=== PATIENT | female | born 1940 | race Caucasian/White ===

== ENCOUNTER 2017-08-11 21:50 | Inpatient (IN) | payer OTHER ==
[~2017-08-11] VITALS: Ht 152.4 cm; Wt 98.5 kg
[~2017-08-11 21:50] MED LIST: ASPIR 8181 M1 PO; AUGMENTIN875 MG PO; BENADRYL25 MG PO; CALCIUM 500 +1 EACH PO; DOXYCYCLINE HY100 M3 PO; FLEXERIL5 MG PO; FLONASE16 G1 BOTH NARES; GLUCOPHAGE1000 MG PO; GLUCOTROL XL10 MG PO; GLUCOTROL10 MG PO; KEFLEX500 MG PO; LANTUS 3 M100 UNITS1 SC; LIPITOR10 MG PO; LOPRESSOR25 MG PO; MICARDIS40 MG PO; MOBIC15 MG PO; NEXIUM40 MG PO; NORVASC5 MG PO; NOVOLOG PE100 UNITS/ SC; PAMELOR10 MG PO; PAXIL10 MG PO; PREDNISONE20 MG PO; PROTONIX40 MG PO; SYNTHROID75 MCG PO; SYNTHROID88 MCG PO; TESSALON PERLE100 MG PO; ULTRAM50 MG PO; VESICARE5 MG PO; VITAMIN C500 M1 PO
[2017-08-11 22:38] LABS: HEMATOCRIT 18.8 % (36.0-46.0); HEMOGLOBIN 6.3 G/DL (11.9-15.5); MCH 30.1 PG (29.0-34.0); MCHC 33.5 G/DL (30.0-36.0); NRBC (%) 0.5 /100 WBC (0-0); PLATELET COUNT 97 K/uL (156-360); RBC DIS.WIDTH-CV 17.5 % (11.8-14.6); RBC DIS.WIDTH-SD 50.4 % (39-53); RED BLOOD COUNT 2.09 M/uL (3.80-5.20); WHITE BLOOD COUNT 7.9 K/uL (4.1-10.2)
[2017-08-11 22:47] LABS: CHLORIDE 103 mEq/L (99-109); POTASSIUM 4.5 mEq/L (3.7-5.4); SODIUM 134 mEq/L (136-147)
[2017-08-11 22:49] LABS: GLUCOSE 272 mg/dL (70-99)
[2017-08-11 22:53] LABS: CREATININE 1.1 mg/dL (0.6-1.3); GFR ESTIMATE (CALCULATED) 51 mL/min/
[2017-08-11 22:54] LABS: UREA NITROGEN (BUN) 15 mg/dL (9-23)
[2017-08-11 22:57] LABS: TROP-I INTERPRETATION NEGATIVE; TROPONIN-I 0.12 ng/mL (0.0-0.30)
[2017-08-11] MEDS ORDERED: NOVOLOG PE100 UNITS/ SC (23:23)
[2017-08-12] VITALS (13 sets, daily range): BP systolic 86–136; BP diastolic 42–72
[2017-08-12 09:21] LABS: HEMATOCRIT 27.8 % (36.0-46.0); HEMOGLOBIN 9.3 G/DL (11.9-15.5); MCHC 33.5 G/DL (30.0-36.0); MCV 86.6 FL (83-99); NRBC (%) 0.7 /100 WBC (0-0); PLATELET COUNT 105 K/uL (156-360); RBC DIS.WIDTH-CV 18.1 % (11.8-14.6); RBC DIS.WIDTH-SD 50.1 % (39-53); RED BLOOD COUNT 3.21 M/uL (3.80-5.20); WHITE BLOOD COUNT 14.5 K/uL (4.1-10.2)
[2017-08-12 09:30] LABS: CHLORIDE 105 mEq/L (99-109); POTASSIUM 4.5 mEq/L (3.7-5.4); SODIUM 135 mEq/L (136-147)
[2017-08-12 09:32] LABS: GLUCOSE 267 mg/dL (70-99)
[2017-08-12 09:36] LABS: CREATININE 1.1 mg/dL (0.6-1.3); GFR ESTIMATE (CALCULATED) 51 mL/min/; UREA NITROGEN (BUN) 16 mg/dL (9-23)
[2017-08-12 18:41] LABS: TROP-I INTERPRETATION NEGATIVE; TROPONIN-I 0.13 ng/mL (0.0-0.30)
[2017-08-12 22:17] LABS: HEMATOCRIT 23.8 % (36.0-46.0); HEMOGLOBIN 8.2 G/DL (11.9-15.5)
[2017-08-13] VITALS (14 sets, daily range): BP systolic 69–140; BP diastolic 44–64
[2017-08-13 01:17] LABS: TROP-I INTERPRETATION POSITIVE
[2017-08-13 01:19] LABS: TROPONIN-I 1.17 ng/mL (0.0-0.30)
[2017-08-13 05:59] LABS: HEMATOCRIT 25.2 % (36.0-46.0); HEMOGLOBIN 8.5 G/DL (11.9-15.5); MCHC 33.7 G/DL (30.0-36.0); NRBC (%) 0.8 /100 WBC (0-0); PLATELET COUNT 99 K/uL (156-360); RBC DIS.WIDTH-CV 17.9 % (11.8-14.6); RBC DIS.WIDTH-SD 50.3 % (39-53); RED BLOOD COUNT 2.93 M/uL (3.80-5.20); WHITE BLOOD COUNT 8.4 K/uL (4.1-10.2)
[2017-08-13 06:21] LABS: CHLORIDE 101 MEQ/L (99-109); GFR ESTIMATE (CALCULATED) 57 mL/min/; GLUCOSE 306 mg/dL (70-99); POTASSIUM 4.3 MEQ/L (3.7-5.4); SODIUM 132 MEQ/L (136-147); UREA NITROGEN (BUN) 16 mg/dL (9-23)
[2017-08-13 13:05] LABS: BASE EXCESS -0.8 mEq/L (-3 to +3); BICARBONATE 22.1 mEq/L (22-26); COMMENTS - BLOOD GASES A+C+; DEVICE NC; METHEMOGLOBIN 0.8 % (0-1.5); O2 FLOW 4 L/MIN; PCO2 29 mm Hg (35-45); PO2 71 mm Hg (80-100); SITE RR; pH 7.49 (7.35-7.45)
[2017-08-13 13:39] LABS: HEMATOCRIT 25.5 % (36.0-46.0); HEMOGLOBIN 8.6 G/DL (11.9-15.5); MCH 29.2 PG (29.0-34.0); MCHC 33.7 G/DL (30.0-36.0); MCV 86.4 FL (83-99); NRBC (%) 0.8 /100 WBC (0-0); PLATELET COUNT 109 K/uL (156-360); RBC DIS.WIDTH-CV 18.1 % (11.8-14.6); RBC DIS.WIDTH-SD 51.3 % (39-53); RED BLOOD COUNT 2.95 M/uL (3.80-5.20); WHITE BLOOD COUNT 12.7 K/uL (4.1-10.2)
[2017-08-13 14:39] LABS: TROP-I INTERPRETATION POSITIVE; TROPONIN-I 0.71 ng/mL (0.0-0.30)
[2017-08-13 18:56] LABS: TROP-I INTERPRETATION POSITIVE; TROPONIN-I 0.67 ng/mL (0.0-0.30)
[2017-08-13 21:55] LABS: HEMATOCRIT 28.4 % (36.0-46.0); HEMOGLOBIN 9.7 G/DL (11.9-15.5); MCV 87.4 FL (83-99)
[2017-08-14] VITALS (25 sets, daily range): BP systolic 87–148; BP diastolic 41–74
[2017-08-14 06:38] LABS: ALBUMIN 2.6 G/DL (3.2-4.8); ALKALINE PHOSPHATASE 45 IU/L (3-129); ALT (GPT) 26 IU/L (3-49); AST (GOT) 40 IU/L (2-34); CHLORIDE 108 MEQ/L (99-109); GLUCOSE 242 mg/dL (70-99); POTASSIUM 4.4 MEQ/L (3.7-5.4); SODIUM 137 MEQ/L (136-147); TOTAL BILIRUBIN 0.9 MG/DL (0.0-1.0)
[2017-08-14 06:40] LABS: CREATININE 1.7 MG/DL (0.6-1.3); GFR ESTIMATE (CALCULATED) 31 mL/min/; UREA NITROGEN (BUN) 27 mg/dL (9-23)
[2017-08-14 14:23] LABS: HEMATOCRIT 24.8 % (36.0-46.0); HEMOGLOBIN 8.2 G/DL (11.9-15.5); MCHC 33.1 G/DL (30.0-36.0); MCV 87.6 FL (83-99); NRBC (%) 0.8 /100 WBC (0-0); PLATELET COUNT 94 K/uL (156-360); RBC DIS.WIDTH-SD 53.5 % (39-53); RED BLOOD COUNT 2.83 M/uL (3.80-5.20); WHITE BLOOD COUNT 9.4 K/uL (4.1-10.2)
[2017-08-14 15:28] LABS: ABS NEUTROPHIL COUNT 0.9; ANISOCYTOSIS 1+; ATYPICAL LYMPHOCYTE 10.7 %; BAND NEUTROPHILS 2.7 % (0-8.0); BURR CELLS 1+; EOSINOPHIL ABS CT 0.1; EOSINOPHILS 0.9 % (0-5.0); GIANT PLATELETS 1+; HYPOCHROMASIA 1+; LYMPHOCYTES 41.1 % (15.0-45.0); MICROCYTOSIS 1+; MONOCYTES 36.6 % (0-9.0); NUCLEATED RBC'S 3.6; OVALOCYTES 1+; PLAT.SUFFICIENCY DECREASED; POIKILOCYTOSIS 1+; SEG.NEUTROPHILS 7.1 % (46.0-76.0); SPHEROCYTES 1+
[2017-08-15] VITALS (18 sets, daily range): BP systolic 108–178; BP diastolic 49–88
[2017-08-15 04:56] LABS: MAGNESIUM 1.2 mg/dL (1.3-2.7)
[2017-08-15 04:59] LABS: HEMATOCRIT 24.5 % (36.0-46.0); HEMOGLOBIN 8.3 G/DL (11.9-15.5); MCH 29.3 PG (29.0-34.0); MCHC 33.9 G/DL (30.0-36.0); MCV 86.6 FL (83-99); NRBC (%) 0.7 /100 WBC (0-0); PLATELET COUNT 89 K/uL (156-360); RBC DIS.WIDTH-CV 17.7 % (11.8-14.6); RBC DIS.WIDTH-SD 52.3 % (39-53); RED BLOOD COUNT 2.83 M/uL (3.80-5.20); WHITE BLOOD COUNT 7.3 K/uL (4.1-10.2)
[2017-08-15 05:00] LABS: PHOSPHORUS 2.3 mg/dL (2.5-4.9)
[2017-08-15 05:40] LABS: ABS NEUTROPHIL COUNT 0.4; ACANTHOCYTES 1+; ANISOCYTOSIS 1+; ATYPICAL LYMPHOCYTE 3.5 %; EOSINOPHIL ABS CT 0.1; EOSINOPHILS 0.9 % (0-5.0); LYMPHOCYTES 38.6 % (15.0-45.0); MICROCYTOSIS 1+; OVALOCYTES 1+; PLAT.SUFFICIENCY DECREASED; SEG.NEUTROPHILS 6.1 % (46.0-76.0); TEAR DROP CELLS 1+
[2017-08-15 05:41] LABS: MONOCYTES 50.9 % (0-9.0)
[2017-08-15 10:28] LABS: CHLORIDE 104 MEQ/L (99-109); GLUCOSE 286 mg/dL (70-99); SODIUM 134 MEQ/L (136-147); UREA NITROGEN (BUN) 22 mg/dL (9-23)
[2017-08-15 10:31] LABS: CREATININE 1.2 MG/DL (0.6-1.3); GFR ESTIMATE (CALCULATED) 46 mL/min/
[2017-08-15 12:09] LABS: C DIFF TOXIN NEGATIVE (NEGATIVE)
[2017-08-16 00:26] VITALS: BP 108/53
[2017-08-16 04:59] VITALS: BP 103/59
[2017-08-16 06:38] LABS: CHLORIDE 106 MEQ/L (99-109); GFR ESTIMATE (CALCULATED) 57 mL/min/; GLUCOSE 277 mg/dL (70-99); MAGNESIUM 1.9 mg/dl (1.3-2.7); SODIUM 136 MEQ/L (136-147); UREA NITROGEN (BUN) 21 mg/dL (9-23)
[2017-08-16 06:40] LABS: POTASSIUM 5.9 MEQ/L (3.7-5.4)
[2017-08-16 07:04] LABS: HEMATOCRIT 25.8 % (36.0-46.0); HEMOGLOBIN 8.5 G/DL (11.9-15.5); MCHC 32.9 G/DL (30.0-36.0); MCV 88.1 FL (83-99); NRBC (%) 1.2 /100 WBC (0-0); PLATELET COUNT 100 K/uL (156-360); RBC DIS.WIDTH-CV 17.6 % (11.8-14.6); RBC DIS.WIDTH-SD 52.9 % (39-53); RED BLOOD COUNT 2.93 M/uL (3.80-5.20); WHITE BLOOD COUNT 5.1 K/uL (4.1-10.2)
[2017-08-16 07:50] VITALS: BP 123/56
[2017-08-16 10:17] LABS: TROP-I INTERPRETATION INDETERMINATE; TROPONIN-I 0.38 ng/mL (0.0-0.30)
[2017-08-16 12:08] VITALS: BP 147/68
[2017-08-16] MEDS ORDERED: PREDNISONE20 MG PO (12:13)
[2017-08-16] MEDS ORDERED: Robitussin AC,Tussi- PO (12:13)
[2017-08-16] MEDS ORDERED: NOVOLOG PE100 UNITS/ SC (12:13)
[2017-08-16] MEDS ORDERED: LEVEMIR100 UNIT/2 SC (12:13)
[2017-08-16] MEDS ORDERED: CEFTRIAXONE1 G1 IV (12:13)
[2017-08-16] MEDS ORDERED: DUONEB 2.5-0.5 M3 ML AEROSOL (12:13)
== END 2017-08-16 14:30 | disposition short-term general hospital (02) | DRG 193 ==
LOC: EME 21:50 → 4SOUTH 08-12 00:14 → EDOF 08-12 00:14 → 4WEST 08-12 00:14 → ENRESERV 08-12 00:18 → CANRESERV 08-12 05:59 → ENRESERV 08-12 06:01 → 4SOUTH 08-12 11:43 → ENRESERV 08-13 12:55 → 4EAST 08-13 15:26 → ENRESERV 08-13 17:39 → 4WEST 08-13 20:13 → ENRESERV 08-15 17:01 → 4EAST 08-15 20:03
PROVIDERS: Anesthesiology; Emergency Medicine; Hospitalist; Internal Medicine; Internal Medicine Cardiovascular Disease; Internal Medicine Critical Care Medicine; Specialist
DX: J18.9 Pneumonia, unspecified organism (principal); I21.9 Acute myocardial infarction, unspecified; C92.00 Acute myeloblastic leukemia, not having achieved remission; R57.1 Hypovolemic shock; D62 Acute posthemorrhagic anemia; I48.2 Chronic atrial fibrillation; I10 Essential (primary) hypertension; E11.65 Type 2 diabetes mellitus with hyperglycemia; I24.9 Acute ischemic heart disease, unspecified; I31.3 Pericardial effusion (noninflammatory); J84.10 Pulmonary fibrosis, unspecified; E11.40 Type 2 diabetes mellitus with diabetic neuropathy, unspecified; E03.9 Hypothyroidism, unspecified; E78.5 Hyperlipidemia, unspecified; M81.0 Age-related osteoporosis without current pathological fracture; E66.9 Obesity, unspecified; R07.0 Pain in throat; R09.02 Hypoxemia; I25.10 Atherosclerotic heart disease of native coronary artery without angina pectoris; I70.8 Atherosclerosis of other arteries; I34.0 Nonrheumatic mitral (valve) insufficiency; K21.9 Gastro-esophageal reflux disease without esophagitis; T38.0X5A Adverse effect of glucocorticoids and synthetic analogues, initial encounter; Z79.82 Long term (current) use of aspirin; Z86.718 Personal history of other venous thrombosis and embolism; I25.2 Old myocardial infarction; Z90.49 Acquired absence of other specified parts of digestive tract; Z90.710 Acquired absence of both cervix and uterus; Z79.899 Other long term (current) drug therapy; Z87.891 Personal history of nicotine dependence; Z68.39 Body mass index [BMI] 39.0-39.9, adult; Z85.51 Personal history of malignant neoplasm of bladder; Z79.4 Long term (current) use of insulin; Z80.0 Family history of malignant neoplasm of digestive organs
CPT/HCPCS: 36415; 36600; 71045; 71046; 80048; 80053; 82272; 82803; 82948; 83735; 83880; 84100; 84484; 85014; 85018; 85025; 85027; 86850; 86900; 86901; 86920; 87040; 87493; 87502; 87641; 93005; 93306; 94640; 94640 76; 94799; 99202; 99281; 99284; C1769; C1887; C1894; C9113; J0696; J1644; J1815; J1940; J2250; J2405; J3010; J3475; J7030; J7050; J7512; P9016; S0028